=== PATIENT | female | born 1965 | race Two or more races ===

== ENCOUNTER 2016-06-13 14:05 | Inpatient (IN) | payer MEDICAID, OTHER ==
[~2016-06-13] VITALS: Ht 152.4 cm; Wt 80.9 kg
[2016-06-13] MEDS ORDERED: HYDROcodone-ACET 5/325MG TAB PO PRN (14:30)
[2016-06-13] MEDS ORDERED: ONDANSETRON HCL 4 MG/2 ML VIAL IV PRN (14:30)
[2016-06-13] MEDS ORDERED: ONDANSETRON HCL 4 MG/2 ML VIAL IV ONE (14:30)
[2016-06-13] MEDS ORDERED: SODIUM CHLORIDE 0.9% 1,000 ML IV SCH (14:30)
[2016-06-13] MEDS ORDERED: HYDROmorphone HCL 2 MG/ML VL IV PRN (14:30)
[2016-06-13] MEDS ORDERED: MORPHINE SULFATE 4 MG/ML SYRG IV ONE (14:30)
[2016-06-13] MEDS ORDERED: LORazepam 0.5 MG TAB PO PRN (14:45)
[2016-06-13] MEDS ORDERED: ACETAMINOPHEN 500 MG TAB PO PRN (14:45)
[2016-06-13] MEDS: SODIUM CHLORIDE 0.9% 1,000 ML IV SCH (15:01)
[2016-06-13 15:17] LABS: Basophils # (auto) 0 uL; Basophils % (auto) 0.3 % (0.0-2.0); Eosinophils # (auto) 0 uL; Eosinophils % (auto) 0.2 % (0.0-7.0); Hematocrit 41.3 % (36.0-46.0); Lymphocytes # (auto) 1.7 uL; Lymphocytes % (auto) 17.2 % (10.0-50.0); Mean Corpuscular Hemoglobin 29.5 pg (28.0-32.0); Mean Corpuscular Volume 86.8 fL (80.0-100.0); Mean Platelet Volume 8.1 fL (7.4-10.4); Monocytes # (auto) 0.6 uL; Monocytes % (auto) 6.6 % (0.0-12.0); Neutrophils # (auto) 7.4 uL; Neutrophils % (auto) 75.7 % (37.0-80.0); Platelet Count (auto) 353 10^3/uL (140-450); White Blood Cell 9.8 10^3/uL (4.4-10.8)
[2016-06-13 15:35] LABS: BUN/Creatinine Ratio 14.3; Bilirubin, Total 0.8 mg/dL (0.2-1.0); Calcium 9.1 mg/dL (8.5-10.1); Potassium 3.5 mmol/L (3.5-5.1); Total Protein 8.1 g/dL (6.4-8.2)
[2016-06-13 15:37] LABS: INR 1.02 (0.9-1.15); Partial Thromboplastin Time 29.2 sec (22.64-33.71); Prothrombin Time 10.5 sec (9.37-12.3)
[2016-06-13 16:29] LABS: Urine Bilirubin Negative (Negative); Urine Blood Negative /uL (Negative); Urine Color Yellow (Yellow); Urine Glucose Normal (Normal); Urine Mucus FEW (None Seen); Urine Nitrite Negative (Negative); Urine RBC 2 /hpf (0 - 4); Urine Squamous Epithelial Cell FEW /hpf (<5); Urine Urobilinogen Normal (Negative); Urine pH 6.5 (5.0-8.0)
[2016-06-13 16:37] LABS: Urine Ketone 1+ (Negative)
[2016-06-13 18:16] VITALS: BP 123/73
[2016-06-13] MEDS: HYDROcodone-ACET 5/325MG TAB PO PRN (18:31)
[2016-06-13 20:00] VITALS: BP 112/75
[2016-06-13] MEDS: DOCUSATE SOD 100 MG CAP PO SCH (21:48)
[2016-06-13 22:00] VITALS: BP 112/75
[2016-06-14] MEDS: PROMETHAZINE HCL 25 MG/ML 1ML IV PRN ×2 (00:23→06:32)
[2016-06-14] MEDS: MORPHINE SULF INJ 2 MG/ML SYRINGE 1ML IV PRN ×2 (00:23→06:32)
[2016-06-14] MEDS: SODIUM CHLORIDE 0.9% 1,000 ML IV SCH ×2 (04:02→16:50)
[2016-06-14 05:00] VITALS: BP 121/65
[2016-06-14 06:01] LABS: Basophils # (auto) 0 uL; Basophils % (auto) 0.1 % (0.0-2.0); Eosinophils # (auto) 0.1 uL; Hematocrit 38.2 % (36.0-46.0); Hemoglobin 12.8 g/dL (12.2-16.2); Lymphocytes % (auto) 19.6 % (10.0-50.0); Mean Corpuscular Hemoglobin 29.1 pg (28.0-32.0); Mean Corpuscular Hgb Conc. 33.6 g/dL (32.0-36.0); Mean Corpuscular Volume 86.7 fL (80.0-100.0); Mean Platelet Volume 8.1 fL (7.4-10.4); Monocytes # (auto) 0.8 uL; Neutrophils # (auto) 7.1 uL; Neutrophils % (auto) 71.3 % (37.0-80.0); Platelet Count (auto) 321 10^3/uL (140-450); White Blood Cell 9.9 10^3/uL (4.4-10.8)
[2016-06-14 06:40] LABS: Potassium 3.8 mmol/L (3.5-5.1)
[2016-06-14 06:45] LABS: BUN/Creatinine Ratio 14.1; Calcium 8.3 mg/dL (8.5-10.1)
[2016-06-14 08:00] VITALS: BP 121/69
[2016-06-14 09:00] VITALS: BP 117/64
[2016-06-14] MEDS ORDERED: ceFAZolin 1GM VL ONE (09:10)
[2016-06-14] MEDS ORDERED: BUPIVACAINE 0.75% INJ 10ML MPV SDV IJ ONE (09:11)
[2016-06-14] MEDS ORDERED: CLINDAMYCIN 600MG IV 50 ML IV ONE ×2 (09:48→10:10)
[2016-06-14] MEDS ORDERED: MIDAZOLAM HCL 1MG/1ML-2 ML VIAL IV ONE (09:55)
[2016-06-14] MEDS ORDERED: KETOROLAC TROMETH 30 MG/ML 1ML VIAL IV ONE ×2 (09:55→10:45)
[2016-06-14] MEDS ORDERED: DEXAMETHASONE SOD PHOS 10MG/1ML VIAL INJ IV ONE (09:55)
[2016-06-14] MEDS ORDERED: PROPOFOL 10 MG/ML 20 ML IV ONE (09:55)
[2016-06-14] MEDS ORDERED: MEPERIDINE HCL (50 MG/ML) 1 ML VIAL IV ONE (09:55)
[2016-06-14] MEDS ORDERED: fentaNYL CITRATE 100 MCG/2 ML VL IV ONE (09:55)
[2016-06-14] MEDS: DOCUSATE SOD 100 MG CAP PO SCH ×2 (10:00→22:00)
[2016-06-14] MEDS ORDERED: MIDAZOLAM HCL 1MG/1ML-2 ML VIAL IV PRN (10:45)
[2016-06-14] MEDS ORDERED: hydrALAZINE HCL 20 MG/ML VL IV PRN (10:45)
[2016-06-14] MEDS ORDERED: MORPHINE SULF INJ 2 MG/ML SYRINGE 1ML IV PRN (10:45)
[2016-06-14] MEDS ORDERED: LABETALOL HCL 5 MG/ML 4ML SYRINGE IV PRN (10:45)
[2016-06-14] MEDS ORDERED: ePHEDrine SULFATE 50 MG/ML AMP IV PRN (10:45)
[2016-06-14] MEDS ORDERED: HYDROmorphone HCL 2 MG/ML VL IV PRN (10:45)
[2016-06-14] MEDS ORDERED: ONDANSETRON HCL 4 MG/2 ML VIAL IV ONE (10:45)
[2016-06-14] MEDS ORDERED: NEOMYCIN-BACITRACIN-POLYM 15GM TOP OINT TOP ONE (11:00)
[2016-06-14 16:39] VITALS: BP 103/58
[2016-06-14 20:00] VITALS: BP 117/57
[2016-06-14 21:40] VITALS: BP 117/57
[2016-06-15] MEDS: HYDROcodone-ACET 5/325MG TAB PO PRN ×3 (04:53→23:36)
[2016-06-15 04:54] VITALS: BP 115/63
[2016-06-15] MEDS: SODIUM CHLORIDE 0.9% 1,000 ML IV SCH ×2 (06:26→20:02)
[2016-06-15 09:00] VITALS: BP 91/48
[2016-06-15] MEDS: DOCUSATE SOD 100 MG CAP PO SCH ×2 (09:10→21:08)
[2016-06-15 13:00] VITALS: BP 112/69
[2016-06-15] MEDS: MORPHINE SULF INJ 2 MG/ML SYRINGE 1ML IV PRN ×2 (13:11→21:08)
[2016-06-15 16:47] VITALS: BP 114/66
[2016-06-15 23:16] VITALS: BP 111/69
[2016-06-15] MEDS: TEMAZEPAM 15 MG CAP PO PRN (23:37)
[2016-06-16] MEDS: HYDROcodone-ACET 5/325MG TAB PO PRN ×3 (04:35→21:59)
[2016-06-16 05:47] VITALS: BP 101/60
[2016-06-16 09:01] VITALS: BP 111/60
[2016-06-16] MEDS: SODIUM CHLORIDE 0.9% 1,000 ML IV SCH ×2 (09:22→22:42)
[2016-06-16] MEDS: DOCUSATE SOD 100 MG CAP PO SCH ×2 (09:52→22:02)
[2016-06-16 14:31] VITALS: BP_SYST 107
[2016-06-16 17:59] VITALS: BP 111/80
[2016-06-16] MEDS: TEMAZEPAM 15 MG CAP PO PRN (21:59)
[2016-06-16 22:00] VITALS: BP 107/68
[2016-06-17 05:00] VITALS: BP 95/73
[2016-06-17] MEDS: HYDROcodone-ACET 5/325MG TAB PO PRN ×2 (05:59→14:22)
[2016-06-17] MEDS: DOCUSATE SOD 100 MG CAP PO SCH (09:37)
[2016-06-17 10:21] VITALS: BP 93/70
[2016-06-17 15:03] VITALS: BP 101/61
[2016-06-17 15:52] VITALS: BP 101/61
== END 2016-06-17 17:18 | disposition home or self-care (01) | DRG 313 ==
LOC: ER 14:05 → OVERFLOW 14:06 → EAST 16:56 → WEST WING 17:15
PROVIDERS: ADMIT Internal Medicine; ATTEND Internal Medicine
PROC: 0QSK04Z Reposition Left Fibula with Internal Fixation Device, Open Approach (ICD-10-PCS; principal; 2016-06-14 10:14)
DX: S82.842A Displaced bimalleolar fracture of left lower leg, initial encounter for closed fracture (principal); Z88.0 Allergy status to penicillin; W19.XXXA Unspecified fall, initial encounter; Y93.89 Activity, other specified; Y92.89 Other specified places as the place of occurrence of the external cause; Y99.8 Other external cause status
CPT/HCPCS: 36415; 71010; 73600; 76000; 80048; 80053; 81001; 81025; 85025; 85610; 85730; 86850; 86900; 86901; 93005; 96374; 96375; C1713; J0690; J1100; J1885; J2250; J2405; J2704; J3490

== ENCOUNTER 2020-03-23 10:30 | Emergency (ER) | payer MEDICAID ==
[~2020-03-23] VITALS: Ht 162.6 cm; Wt 65.8 kg
[2020-03-23 11:18] LABS: Basophils # (auto) 0 10 ^3/uL (0-0.2); Basophils % (auto) 0.2 % (0.0-2.0); Eosinophils # (auto) 0 10 ^3/uL (0-0.8); Hematocrit 46.5 % (36.0-46.0); Hemoglobin 15.5 g/dL (12.2-16.2); Lymphocytes # (auto) 1.1 10 ^3/uL (0.4-5.4); Lymphocytes % (auto) 12.4 % (10.0-50.0); Mean Corpuscular Hemoglobin 29.1 pg (28.0-32.0); Mean Corpuscular Hgb Conc. 33.4 g/dL (32.0-36.0); Mean Corpuscular Volume 87.1 fL (80.0-100.0); Monocytes # (auto) 0.4 10 ^3/uL (0-1.3); Monocytes % (auto) 5.2 % (0.0-12.0); Neutrophils % (auto) 82.2 % (37.0-80.0); Platelet Count (auto) 243 10^3/uL (140-450); Red Blood Cells 5.34 10^6/uL (4.0-5.20); Red Cell Distribution Width 13.8 % (11.8-14.3); White Blood Cell 8.6 10^3/uL (4.4-10.8)
[2020-03-23 11:44] LABS: Albumin 3.4 g/dL (3.4-5.0); Calcium 8.4 mg/dL (8.5-10.1); Potassium 3.5 mmol/L (3.5-5.1)
[2020-03-23 11:47] LABS: BUN/Creatinine Ratio 14.3; Bilirubin, Total 0.7 mg/dL (0.2-1.0); Total Protein 8.3 g/dL (6.4-8.2)
[2020-03-23] MEDS ORDERED: ONDANSETRON HCL 4 MG/2 ML VIAL IV ONE (13:00)
[2020-03-23] MEDS ORDERED: SODIUM CHLORIDE 0.9% 1,000 ML IV ONE (13:00)
[2020-03-23] MEDS ORDERED: ACETAMINOPHEN 325 MG TAB PO ONE ×2 (13:10→13:15)
[2020-03-23] MEDS ORDERED: AZITHROMYCIN 500MG/ 250ML 250 ML IV ONE (13:30)
[2020-03-23 15:38] VITALS: BP 97/57
[2020-03-23 15:57] LABS: INR 1.01 (0.9-1.15); Partial Thromboplastin Time 31.9 sec (23.0-31.2)
== END 2020-03-23 17:22 | disposition home or self-care (01) ==
LOC: ER 10:30 → EDBD 10:30 → ER 17:22
DX: U07.1 COVID-19 (principal); J18.8 Other pneumonia, unspecified organism; R11.2 Nausea with vomiting, unspecified; E87.1 Hypo-osmolality and hyponatremia; R94.5 Abnormal results of liver function studies
CPT/HCPCS: 36415; 71045; 80053; 83605; 83735; 85025; 85610; 85730; 87040; 87426; 93005; 96361; 96365; 96366; 96375; 99285; C9803; J0456; J2405; U0003

== ENCOUNTER 2022-05-28 01:09 | Emergency (ER) | payer MEDICAID ==
[~2022-05-28] VITALS: Ht 152.4 cm; Wt 72.0 kg
[2022-05-28] MEDS ORDERED: ONDANSETRON ODT 4 MG TAB PO ONE (01:30)
[2022-05-28] MEDS ORDERED: ACETAMINOPHEN 500 MG TAB PO ONE (01:30)
[2022-05-28 01:38] LABS: Basophils # (auto) 0.1 10 ^3/uL (0-0.2); Basophils % (auto) 0.8 % (0.0-2.0); Eosinophils # (auto) 0.3 10 ^3/uL (0-0.8); Eosinophils % (auto) 2.5 % (0.0-7.0); Hematocrit 41.4 % (36.0-46.0); Hemoglobin 14.4 g/dL (12.2-16.2); Lymphocytes % (auto) 27.3 % (10.0-50.0); Mean Corpuscular Hemoglobin 30.3 pg (28.0-32.0); Mean Corpuscular Hgb Conc. 34.7 g/dL (32.0-36.0); Mean Corpuscular Volume 87.4 fL (80.0-100.0); Monocytes # (auto) 0.6 10 ^3/uL (0-1.3); Monocytes % (auto) 5.4 % (0.0-12.0); Nucleated Red Blood Cells % 0.1 %; Red Blood Cells 4.74 10^6/uL (4.0-5.20); Red Cell Distribution Width 13.6 % (11.8-14.3)
[2022-05-28 01:45] LABS: Urine Bacteria FEW /hpf (None Seen); Urine Blood 1+ /uL (Negative); Urine Specific Gravity 1.017 (1.001-1.035); Urine WBC 18 /hpf (0 - 5)
[2022-05-28 01:59] LABS: Albumin 3.7 g/dL (3.4-5.0); BUN/Creatinine Ratio 14.7; Calcium 8.8 mg/dL (8.5-10.1); Potassium 3.6 mmol/L (3.5-5.1)
[2022-05-28 02:02] LABS: Bilirubin, Total 0.8 mg/dL (0.2-1.0); Total Protein 7.9 g/dL (6.4-8.2)
[2022-05-28 02:36] LABS: CRP High Sensitivity 0.379 mg/dL (< 0.3)
[2022-05-28] MEDS ORDERED: cefTRIAXone SOD 1,000 MG VL IM ONE (05:15)
[2022-05-28 07:50] VITALS: BP 127/68
== END 2022-05-28 08:04 | disposition home or self-care (01) ==
LOC: ER 01:09
DX: N20.0 Calculus of kidney (principal); Z88.0 Allergy status to penicillin
CPT/HCPCS: 36415; 74176; 80053; 81001; 83690; 85025; 86141; 96372; 99285; J0696; Q0162

== ENCOUNTER 2024-03-28 00:05 | Inpatient (IN) | payer MEDICAID, OTHER ==
[~2024-03-28] VITALS: Ht 152.4 cm; Wt 30.5 kg
[2024-03-28] VITALS (7 sets, daily range): BP systolic 128–150; BP diastolic 67–69; PULSE 60–72; RESP 14–17; TEMP 98–98.6; O2SAT 95–97
--- NOTE | 2024-03-28 00:20 | ED.PDOC ---
GI ASSESSMENT HPI Comments 59-year-old female who came to ER via EMS for abdominal pain. About 4 hours ago, after eating tacos, patient started experiencing epigastric abdominal pain associated with bouts of nausea and vomiting 4x. Patient is self-medicated with Pepto-Bismol at home but offered no relief. Denies any abdominal surgical history. Patient was given Zofran by paramedics while EN route to the ER. Chief Complaint: Abdominal pain Time Seen by MD: 00:19 Primary Care Provider: HELDERK Reviewed Notes: Nurses Notes Allergies: Coded Allergies: Penicillins (Verified Allergy, Severe, 06/13/16) Home Meds No Active Prescriptions or Reported Meds Information Source: Patient Mode of Arrival: EMS Timing: Hours Duration: Since onset Prehospital treatment: None Quality: Aching Vomitus: Watery Stool: Normal Severity: Moderate Recent: None Recent Hx of: None Pain Location: Epigastric Modifying Factors: Nothing Associated sign and symptoms: Nausea, Vomiting, Abdominal Pain Past Medical History PAST MEDICAL HISTORY: High Lipids, HTN, PUD Surgical History: Denies all surgeries CLINICAL INFORMATICS PHYSICIAN History: No Pertinent CLINICAL INFORMATICS PHYSICIAN History Family History Family History: Family hx of DM, Family hx of HTN Social History Smoker: Non-Smoker Alcohol: Denies ETOH Use Drugs: Denies Drug Use Lives In: Home Constitutional: reports: weakness; denies: chills, diaphoresis, fatigue, fever, malaise, sweats, others EENTM: denies: blurred vision, double vision, ear bleeding, ear discharge, ear drainage, ear pain, ear ringing, eye pain, eye redness, hearing loss, mouth pain, mouth swelling, nasal discharge, nose bleeding, nose congestion, nose pain, photophobia, tearing, throat pain, throat swelling, voice changes, others Respiratory: denies: cough, hemoptysis, orthopnea, SOB at rest, shortness of breath, SOB with excertion, stridor, wheezing, others Cardiovascular: denies: chest pain, dizzy spells, diaphoresis, Dyspnea on exer tion, edema, irregular heart beat, left arm pain, lightheadedness, palpitations, PND, syncope, others Gastrointestinal: reports: abdominal pain, nausea, vomiting; denies: abdomen distended, blood streaked bowels, constipated, diarrhea, dysphagia, difficulty swallowing, hematemesis, melena, poor appetite, poor fluid intake, rectal bleeding, rectal pain, others Genitourinary: denies: abnormal vagina bleeding, burning, dyspareunia, dysuria, flank pain, frequency, hematuria, incontinence, pain, , vagina discharge, urgency, others Neurological: denies: dizziness, fainting, headache, left sided numbness, left sided weakness, numbness, paresthesia, pre-existing deficit, right sided numbness, right sided weakness, seizure, speech problems, tingling, tremors, weakness, others Musculoskeletal: denies: back pain, gout, joint pain, joint swelling, muscle pain, muscle stiffness, neck pain, others Integumetry: denies: bruises, change in color, change in hair/nails, dryness, laceration, lesions, lumps, rash, wounds, others Allergic/Immunocompromised: denies: Difficulty Healing, Frequent Infections, Hives, Itching, others Hematologic/Lymphatic: denies: anemia, blood clots, easy bleeding, easy bruising, swollen glands, others Endocrine: denies: excessive hunger, excessive sweating, excessive thirst, excessive urination, flushing, intolerance to cold, intolerance to heat, unexplained weight gain, unexplained weight loss, others Psychiatric: denies: anxiety, bipolar disorder, depression, hopeless, panic disorder, schizophrenia, sleepless, suicidal, others Physical Exam General Appearance: No Apparent Distress, Normal HEENT: Normal ENT Inspection, Pharynx Normal, TMs Normal Neck: Full Range of Motion, Non-Tender, Normal, Normal Inspection Respiratory: Chest Non-Tender, Lungs Clear, No Accessory Muscle Use, No Respiratory Distress, Normal Breath Sounds Cardiovascular: No Edema, No JVD, No Murmur, No Gallop, Normal Peripheral Pulses, Regular Rate/Rhythm Breast Exam: Deferred Gastrointestinal: No Organomegaly, Non Tender, No Pulsatile Mass, Normal Bowel Sounds, Soft Genitalia: Deferred Pelvic: Deferred Rectal: Deferred Extremities: No calf tenderness, Normal capillary refill, Normal inspection, Normal range of motion, Non-tender, No pedal edema Musculoskeletal : Apperance: Normal 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 Was a procedure done?: No GI differential Dx Differential Diagnosis: Diverticular disease, Gastritis/PUD, Gastroenteritis, Pancreatitis, UTI, Urolithiasis, Dehydration, Electrolyte Imbalance, Food Poisoning X-Ray, Labs, Meds, VS Vital Signs Date Time Temp Pulse Resp B/P (MAP) Pulse Ox O2 Delivery O2 Flow Rate FiO2 03/28/24 00:15 67 03/28/24 00:05 97.9 71 20 148/91 (110) 96 Lab Test 03/28/24 00:30 Range/Units White Blood Count 12.2 H 4.4-10.8 10^3/uL Red Blood Count 4.83 4.0-5.20 10^6/uL Hemoglobin 14.3 12.2-16.2 g/dL Hematocrit 42.4 36.0-46.0 % Mean Corpuscular Volume 87.7 80.0-100.0 fL Mean Corpuscular Hemoglobin 29.7 28.0-32.0 pg Mean Corpuscular Hemoglobin Concent 33.8 32.0-36.0 g/dL Red Cell Distribution Width 13.7 11.8-14.3 % Platelet Count 345 140-450 10^3/uL Mean Platelet Volume 7.7 6.9-10.8 fL Neutrophils (%) (Auto) 76.0 37.0-80.0 % Lymphocytes (%) (Auto) 17.2 10.0-50.0 % Monocytes (%) (Auto) 4.5 0.0-12.0 % Eosinophils (%) (Auto) 1.7 0.0-7.0 % Basophils (%) (Auto) 0.6 0.0-2.0 % Neutrophils # (Auto) 9.3 H 1.6-8.6 10 ^3/uL Lymphocytes # (Auto) 2.1 0.4-5.4 10 ^3/uL Monocytes # (Auto) 0.5 0-1.3 10 ^3/uL Eosinophils # (Auto) 0.2 0-0.8 10 ^3/uL Basophils # (Auto) 0.1 0-0.2 10 ^3/uL Nucleated Red Blood Cells 0.0 % Sodium Level 141 136-145 mmol/L Potassium Level 3.5 3.5-5.1 mmol/L Chloride Level 104 98-107 mmol/L Carbon Dioxide Level 24 20-31 mmol/L Anion Gap 13 5-15 Blood Urea Nitrogen 10 9-23 mg/dL Creatinine 0.88 0.550-1.02 mg/dL Glomerular Filtration Rate Calc 76 >90 mL/min BUN/Creatinine Ratio 11.4 10.0-20.0 Serum Glucose 160 H 74-106 mg/dL Calcium Level 9.5 8.7-10.4 mg/dL Total Bilirubin 1.2 H 0.2-1.0 mg/dL Aspartate Amino Transferase (AST) 42 H 13-40 U/L Alanine Aminotransferase (ALT) 55 H 7-40 U/L Alkaline Phosphatase 76 46-116 U/L Troponin I High Sensitivity < 3 L </=34 ng/L Total Protein 7.6 5.7-8.2 g/dL Albumin 4.4 3.2-4.8 g/dL Lipase 73 H 12-53 U/L Exam: CT CT AB PEL WITH IV CON ONLY History: upper abd pain COMPARISON: None Technique: Multidetector spiral CT of the abdomen and pelvis was performed from lung bases to pubic symphysis. Intravenous contrast was administered during this examination. Portal venous imaging was obtained. Axial, coronal and sagittal multiplanar reformats were performed by the technologist on a separate workstation. Radiation Dose : 1. Abdomen/Pelvis: CTDIvol 15.6 mGy, DLP 880 mGy*cm. CONTRAST: Type of contrast: Omni 300 Contrast injected: 100 ml Findings: Lung Bases: No acute or significant lung base finding. Normal heart size. No pleural or pericardial effusion. Liver: The liver is normal in size. No focal lesions. Normal hepatic vascular enhancement. Gallbladder and Biliary Tree: Questionable gallbladder wall thickening. Probable gallstones Spleen: Unremarkable Pancreas: The pancreas is normal in appearance without focal lesions or abnormal enhancement. Adrenal Glands: Unremarkable Kidneys: No hydronephrosis. Bladder: Unremarkable Bowel: The stomach is grossly normal in appearance. Mild wall thickening of the descending colon may reflect underdistention versus mild colitis The appendix is not visualized; however, no secondary findings of acute appendicitis identified. Ascites: Absent Lymphadenopathy: No mesenteric, retroperitoneal or periportal lymphadenopathy. Abdominal Wall and Mesentery: Unremarkable. Vasculature: The visualized abdominal aorta is normal in size and caliber. Abdominal and pelvic vessels demonstrate normal enhancement. Pelvic Organs: Unremarkable Musculoskeletal: No aggressive focal bony lesions, acute fractures or dislocation. IMPRESSION: 1. Questionable gallbladder wall thickening with probable gallstones. Cholecystitis is not excluded. Recommend right upper quadrant ultrasound for further evaluation. 2. Mild wall thickening of the descending colon may reflect underdistention versus mild colitis Time of 1ST Reevaluation: 00:16 Reevaluation 1ST: Unchanged Time of 2ND Reevaluation: 01:25 Reevaluation 2ND: Unchanged Patient Education/Counseling: Diagnosis, Treatment Family Education/Counseling: No Family Present Departure 1 Departure Time of Disposition: 01:26 (CT suggests cholecystitis. will give antibiotics and with shared decision making will admit for ultrasound and surgery consult) Impression: Primary Impression: Acute cholecystitis Disposition: ADMITTED INPATIENT Admit to: Med Surg Condition: Guarded e-Prescriptions No Active Prescriptions or Reported Meds Critical Care Note Critical Care Time?: No Stability Stability form required: No Heart Score Heart Score: Heart Score Response (Comments) Value History N/A 0 EKG N/A 0 Age N/A 0 Risk Factors N/A 0 Troponin N/A 0 Total 0 I personally scribed for DEVI NOEL MD ([email or web address]) on 03/28/24 at 00:20. Electronically submitted by Rob Henriquez ([email or web address]). I personally scribed for DEVI NOEL MD ([email or web address]) on 03/28/24 at 01:11. Electronically submitted by Rob Henriquez ([email or web address]). DEVI NOEL MD Mar 28, 2024 00:20
[2024-03-28 00:43] LABS: Basophils # (auto) 0.1 10 ^3/uL (0-0.2); Basophils % (auto) 0.6 % (0.0-2.0); Eosinophils # (auto) 0.2 10 ^3/uL (0-0.8); Eosinophils % (auto) 1.7 % (0.0-7.0); Hematocrit 42.4 % (36.0-46.0); Hemoglobin 14.3 g/dL (12.2-16.2); Lymphocytes # (auto) 2.1 10 ^3/uL (0.4-5.4); Lymphocytes % (auto) 17.2 % (10.0-50.0); Mean Corpuscular Hemoglobin 29.7 pg (28.0-32.0); Mean Corpuscular Hgb Conc. 33.8 g/dL (32.0-36.0); Mean Corpuscular Volume 87.7 fL (80.0-100.0); Monocytes # (auto) 0.5 10 ^3/uL (0-1.3); Monocytes % (auto) 4.5 % (0.0-12.0); Neutrophils # (auto) 9.3 10 ^3/uL (1.6-8.6); Platelet Count (auto) 345 10^3/uL (140-450); Red Blood Cells 4.83 10^6/uL (4.0-5.20); Red Cell Distribution Width 13.7 % (11.8-14.3); White Blood Cell 12.2 10^3/uL (4.4-10.8)
[2024-03-28] MEDS: IOHEXOL 300 MG/ML 100ML BOTTLE IJ ONE (00:43)
--- NOTE | 2024-03-28 00:56 | DVH ---
Exam: CT CT AB PEL WITH IV CON ONLY History: upper abd pain COMPARISON: None Technique: Multidetector spiral CT of the abdomen and pelvis was performed from lung bases to pubic s ymphysis. Intravenous contrast was administered during this examination. Portal venous imaging was obtained. Axial, coronal and sagittal multiplanar reformats were performed by the technologist on a separate workstation. Radiation Dose : 1. Abdomen/Pelvis: CTDIvol 15.6 mGy, DLP 880 mGy*cm. CONTRAST: Type of contrast: Omni 300 Contrast injected: 100 ml Findings: Lung Bases: No acute or significant lung base finding. Normal heart size. No pleural or pericardial effusion. Liver: The liver is normal in size. No focal lesions. Normal hepatic vascular enhancement. Gallbladder and Biliary Tree: Questionable gallbladder wall thickening. Probable gallstones Spleen: Unremarkable Pancreas: The pancreas is normal in appearance without focal lesions or abnormal enhancement. Adrenal Glands: Unremarkable Kidneys: No hydronephrosis. Bladder: Unremarkable Bowel: The stomach is grossly normal in appearance. Mild wall thickening of the descending colon may reflect underdistention versus mild colitis The appendix is not visualized; however, no secondary fi ndings of acute appendicitis identified. Ascites: Absent Lymphadenopathy: No mesenteric, retroperitoneal or periportal lymphadenopathy. Abdominal Wall and Mesentery: Unremarkable. Vasculature: The visualized abdominal aorta is normal in size and caliber. Abdominal and pelvic vess els demonstrate normal enhancement. Pelvic Organs: Unremarkable Musculoskeletal: No aggressive focal bony lesions, acute fractures or dislocation. IMPRESSION: 1. Questionable gallbladder wall thickening with probable gallstones. Cholecystitis is not excluded. Recommend right upper quadrant ultrasound for further evaluation. 2. Mild wall thickening of the descending colon may reflect underdistention versus mild colitis Radiation optimization: All CT scans at this facility use at least one of these dose optimization cony hniques: automated exposure control mA and/or kV adjustment per patient size (includes targeted exam s where dose is matched to clinical indication) or iterative reconstruction.
[2024-03-28 01:03] LABS: Albumin 4.4 g/dL (3.2-4.8); Alkaline Phosphatase 76 U/L (46-116); Anion Gap 13 (5-15); BUN/Creatinine Ratio 11.4 (10.0-20.0); Blood Urea Nitrogen 10 mg/dL (9-23); Calcium 9.5 mg/dL (8.7-10.4); Carbon Dioxide 24 mmol/L (20-31); Chloride 104 mmol/L (98-107); Sodium 141 mmol/L (136-145)
[2024-03-28 01:04] LABS: Bilirubin, Total 1.2 mg/dL (0.2-1.0); Total Protein 7.6 g/dL (5.7-8.2)
[2024-03-28 01:11] LABS: Alanine Aminotransferase 55 U/L (7-40); Aspartate Aminotransferase 42 U/L (13-40); Glucose 160 mg/dL (74-106); Lipase 73 U/L (12-53); Potassium 3.5 mmol/L (3.5-5.1)
[2024-03-28] MEDS: SODIUM CHLORIDE 0.9% 1,000 ML IVB ONE (01:48)
[2024-03-28] MEDS: PIPERACILLIN-TAZOB 3.375GM 100 ML IV ONE (01:54)
[2024-03-28] MEDS ORDERED: MORPHINE SULFATE INJ 2 MG/ml SYRG IV PRN ×3 (02:30→05:30)
[2024-03-28] MEDS ORDERED: NITROGLYCERIN 0.4 MG SL TAB SL PRN (02:30)
[2024-03-28] MEDS: ONDANSETRON HCL 4 MG/2 ML VIAL IV ONE (02:42)
[2024-03-28] MEDS: MORPHINE SULFATE 4 MG/ML SYR/VIAL IV ONE (02:43)
[2024-03-28 03:11] LABS: INR 0.95 (0.9-1.15); Prothrombin Time 10.1 sec (9.3-11.8)
[2024-03-28 03:34] LABS: Basophils # (auto) 0 10 ^3/uL (0-0.2); Basophils % (auto) 0.2 % (0.0-2.0); Eosinophils # (auto) 0 10 ^3/uL (0-0.8); Eosinophils % (auto) 0.3 % (0.0-7.0); Hematocrit 41.3 % (36.0-46.0); Hemoglobin 13.7 g/dL (12.2-16.2); Lymphocytes # (auto) 1.2 10 ^3/uL (0.4-5.4); Lymphocytes % (auto) 11.8 % (10.0-50.0); Mean Corpuscular Hemoglobin 29.7 pg (28.0-32.0); Mean Corpuscular Hgb Conc. 33.3 g/dL (32.0-36.0); Mean Corpuscular Volume 89.3 fL (80.0-100.0); Monocytes # (auto) 0.6 10 ^3/uL (0-1.3); Monocytes % (auto) 5.7 % (0.0-12.0); Neutrophils # (auto) 8.3 10 ^3/uL (1.6-8.6); Platelet Count (auto) 305 10^3/uL (140-450); Red Blood Cells 4.63 10^6/uL (4.0-5.20); Red Cell Distribution Width 13.8 % (11.8-14.3); White Blood Cell 10.1 10^3/uL (4.4-10.8)
[2024-03-28 03:48] LABS: Alkaline Phosphatase 78 U/L (46-116); Anion Gap 12 (5-15); BUN/Creatinine Ratio 9.9 (10.0-20.0); Calcium 9.2 mg/dL (8.7-10.4); Carbon Dioxide 23 mmol/L (20-31); Chloride 106 mmol/L (98-107); Potassium 3.6 mmol/L (3.5-5.1); Sodium 141 mmol/L (136-145)
[2024-03-28 03:49] LABS: Albumin 4.2 g/dL (3.2-4.8); Total Protein 7.2 g/dL (5.7-8.2)
[2024-03-28 04:02] LABS: Alanine Aminotransferase 67 U/L (7-40); Aspartate Aminotransferase 63 U/L (13-40); Bilirubin, Total 1.4 mg/dL (0.2-1.0); Blood Urea Nitrogen 8 mg/dL (9-23); Glucose 148 mg/dL (74-106); Lipase 61 U/L (12-53)
--- NOTE | 2024-03-28 04:07 | DVH ---
Examination: CXR1 Clinical Indication: SOB Comparison: None. Technique: Frontal view of chest radiograph. Findings: The lungs are clear and well-expanded with no pulmonary infiltrate or pleural effusion. The cardiomediastinal silhouette is within normal limits. No acute osseous abnormality. ECG lead wires are noted. Impression: 1. ECG lead wires are noted. 2. No acute cardiopulmonary disease. Electronically Signed 03/28/2024 04:05 Darlyn Caballero
[2024-03-28] MEDS: SODIUM CHLORIDE 0.9% 1,000 ML IV ONE (04:25)
--- NOTE | 2024-03-28 05:31 | DVHHPRES ---
History of Present Illness Resident Creating Document: JENNIFERCASHZOYA RESIDENT History of Present Illness Patient is a 59-year-old female with a past medical history of dyslipidemia came to the ED with a chief complaint of upper abdominal pain for 2-3 hours prior to admission. Patient reported sudden onset epigastric and right upper quadrant pain severe 10/10 on intensity which caused her to fall to floor, radiating to the back over the flank following which the patient had 6-7 episodes of vomiting. Vomitus was mostly undigested food and no blood. Patient reported that she had a similar pain a year ago and she went to [place] where she was told that she had gallstones but no surgery was done. During the current episode patient denied chest pain, shortness of breath, palpitations, sweating. Patient denies recent weight loss, night sweats, sick contacts, recent travel, eating food out of the normal. Past medical history: Dyslipidemia Past surgical history: Left ankle surgery Social history: Patient was with family and denies smoking, alcohol, drug use Home medications: Atorvastatin 40 mg q.d. Review of Systems Review of Systems Patient is seen and examined at the bedside Reports right upper quadrant, epigastric and left upper quadrant pain. Also reports left lower quadrant pain Denies nausea, vomiting, diarrhea Allergies: Coded Allergies: Penicillins (Verified Allergy, Severe, 06/13/16) Medications Current Medications Medications Dose Ordered Sig/Alphonso Route Start Time Stop Time Status Last Admin Dose Admin Nitroglycerin 0.4 mg Q5MINP PRN SL 03/28/24 02:30 Morphine Sulfate 2 mg Q30M PRN IV 03/28/24 02:30 Piperacillin Sod/ Tazobactam Sod 100 ml @ 25 mls/hr Q8HR IV 03/28/24 09:00 Exam Vital Signs Vital Signs Date Time Temp Pulse Resp B/P (MAP) Pulse Ox O2 Delivery O2 Flow Rate FiO2 03/28/24 04:28 62 17 131/80 03/28/24 01:51 99.1 96 99.1 Exam Physical Examination Gen - no pallor, no icterus, no cyanosis, no clubbing, no LAD, no edema . Skin - Patients skin is warm and dry.. HEENT - normocephalic, atraumatic, dry mucous membranes. Neck - full ROM, no LAD, no JVD Pulmonary - B/L vesicular breath sounds. no crackles , no wheezing cardiovascular - normal S1,S2 heard. no murmurs heard. peripheral pulses radial 2+, pedal 2+. capillary refill normal <2 secs. GI - soft abdomen with tenderness to palpation in the right right upper quadrant, the epigastrium and left lower quadrant. no hepatospleenomegaly. Bowel sounds hypoactive Neurological - Patient is A/O X 3. Bilateral upper extremity strength 5/5, bilateral lower extremity strength 5/5, no facial droop, normal speech, no tremor, no sensory deficiets. Labs/Xrays Labs Test 03/28/24 03:15 03/28/24 00:30 Range/Units White Blood Count 10.1 4.4-10.8 10^3/uL Red Blood Count 4.63 4.0-5.20 10^6/uL Hemoglobin 13.7 12.2-16.2 g/dL Hematocrit 41.3 36.0-46.0 % Mean Corpuscular Volume 89.3 80.0-100.0 fL Mean Corpuscular Hemoglobin 29.7 28.0-32.0 pg Mean Corpuscular Hemoglobin Concent 33.3 32.0-36.0 g/dL Red Cell Distribution Width 13.8 11.8-14.3 % Platelet Count 305 140-450 10^3/uL Mean Platelet Volume 7.7 6.9-10.8 fL Neutrophils (%) (Auto) 82.0 H 37.0-80.0 % Lymphocytes (%) (Auto) 11.8 10.0-50.0 % Monocytes (%) (Auto) 5.7 0.0-12.0 % Eosinophils (%) (Auto) 0.3 0.0-7.0 % Basophils (%) (Auto) 0.2 0.0-2.0 % Neutrophils # (Auto) 8.3 1.6-8.6 10 ^3/uL Lymphocytes # (Auto) 1.2 0.4-5.4 10 ^3/uL Monocytes # (Auto) 0.6 0-1.3 10 ^3/uL Eosinophils # (Auto) 0 0-0.8 10 ^3/uL Basophils # (Auto) 0 0-0.2 10 ^3/uL Nucleated Red Blood Cells 0.0 % Sodium Level 141 136-145 mmol/L Potassium Level 3.6 3.5-5.1 mmol/L Chloride Level 106 98-107 mmol/L Carbon Dioxide Level 23 20-31 mmol/L Anion Gap 12 5-15 Blood Urea Nitrogen 8 L 9-23 mg/dL Creatinine 0.81 0.550-1.02 mg/dL Glomerular Filtration Rate Calc 84 >90 mL/min BUN/Creatinine Ratio 9.9 L 10.0-20.0 Serum Glucose 148 H 74-106 mg/dL Calcium Level 9.2 8.7-10.4 mg/dL Total Bilirubin 1.4 H 0.2-1.0 mg/dL Gamma Glutamyl Transpeptidase 98 H <38 U/L Aspartate Amino Transferase (AST) 63 H 13-40 U/L Alanine Aminotransferase (ALT) 67 H 7-40 U/L Alkaline Phosphatase 78 46-116 U/L Total Protein 7.2 5.7-8.2 g/dL Albumin 4.2 3.2-4.8 g/dL Lipase 61 H 12-53 U/L Prothrombin Time 10.1 9.3-11.8 sec Prothrombin Time INR 0.95 0.9-1.15 Activated Partial Thromboplast Time 31.0 24.5-34.5 SEC Troponin I High Sensitivity < 3 L </=34 ng/L Assessment/Plan Assessment/Plan Assessment and plan # Right upper quadrant/epigastric abdominal pain # ?Acute cholecystitis # Cholelithiasis # ?Acute pancreatitis - CT abdomen pelvis with IV contrast shows questionable gallbladder wall thickening with probable gallstones. Pancreas normal in appearance without focal lesions or abnormal enhancement - lipase elevated but less than 3 times upper limit - gallbladder ultrasound pending - patient NPO - on IV fluids - Zosyn 3.375 g IV Q 8 hours - Protonix 40 mg IV daily - Zofran 4 mg p.r.n. - surgical consult pending # ?Acute colitis - CT abdomen pelvis shows mild wall thickening of the descending colon - on IV Zosyn - NPO - IV fluids # h/o dyslipidemia - atorvastatin 40 mg once daily, held Goals of care discussed with the patient for over 31 minutes. Full code Plan discussed with Dr. Crowder Plan discussed with: Patient My Orders Orders - YOLI RODRIGUEZ RESIDENT Procedure Category Date Status Time Gallbladder US 03/28/24 Logged 02:20 Admit ADMIT 03/28/24 Transmitted 02:20 Nitroglycerin PHA 03/28/24 In Process Sublingual (Ntrostat 02:30 Morphine Sulfate PHA 03/28/24 In Process Injection 02:30 Npo (Nothing By DIET 03/28/24 Transmitted Mouth) Diet Breakfast Drug Screen LAB 03/28/24 Logged 02:20 Chest Xray 1 View XY 03/28/24 Resulted 02:20 Blood Culture JONES 03/28/24 In Process 02:20 Covid19 Antigen Rachelle LAB 03/28/24 Logged Rapid Influenza A&B LAB 03/28/24 Logged 02:20 Sodium Chloride 0.9% PHA 03/28/24 In Process 02:30 Piperacillin-Tazob PHA 03/28/24 In Process 3.375gm (Zosyn 3.375g 09:00 * Surgical Consult CONS 03/28/24 Transmitted Date of Service: Mar 28, 2024 Billing Provider: HUONG CROWDER MD Common Visit Codes: 54584-[id number] INP/OBS CARE (HIGH) Secondary Visit Codes: 68971-[id number] CARE PLAN 30 MINUTES YOLI RODRIGUEZ RESIDENT Mar 28, 2024 05:31 HUONG CROWDER MD Mar 28, 2024 10:43
--- NOTE | 2024-03-28 06:19 | ECG ---
[facility] Test Date: 2024-03-28 Test Time: 00:15:15 Pat Name: LOVE WALTERS Department: ER Room: [address] [place] [address] Gender: F [employer] Specialist: SHANTE : 1965 Requested By: DEVI NOEL Order Number: [id number] Reading MD: Davon Mendez Measurements Intervals [place] Rate: 67 P: 79 IA: 174 QRS: 77 QRSD: 86 T: 64 QT: 436 QTc: 461 Interpretive Statements Sinus rhythm Borderline low voltage, extremity leads Electronically Signed On 03-31-2024 13:04:14 PST by Davon Mendez Please click the below link to view image of tracing.
[2024-03-28 07:09] LABS: Urine Bacteria None Seen /hpf (None Seen)
[2024-03-28 07:21] LABS: Rapid Influenza A Negative (Negative); Rapid Influenza B Negative (Negative)
[2024-03-28 07:22] LABS: COVID19 ANTIGEN SOFIA FIA NEGATIVE (NEGATIVE)
[2024-03-28 07:28] LABS: Opiate Scree,Urine Pos (NEGATIVE)
[2024-03-28 07:29] LABS: Urine Blood 1+ /uL (Negative); Urine Clarity Clear (Clear); Urine Color Light-Yellow (Yellow); Urine Protein, UAD Negative (Negative); Urine Urobilinogen Normal (Negative); Urine WBC 1 /hpf (0 - 5); Urine pH 6.5 (5.0-9.0)
[2024-03-28 07:30] LABS: Amphetamine Screen, Urine Neg (NEGATIVE); Barbiturate Scree,Urine Neg (NEGATIVE); Benzodiazephine Screen, Urine Neg (NEGATIVE); Cannabinoid Screen, Urine Neg (NEGATIVE); Cocaine Screen, Urine Neg (NEGATIVE); Phencyclidine Screen, Urine Neg (NEGATIVE)
--- NOTE | 2024-03-28 09:41 | DVHINCON2 ---
Date of service: Mar 28, 2024 Family History: Patient reports no known family medical history. Allergies: Coded Allergies: Penicillins (Verified Allergy, Severe, 06/13/16) Home Meds No Active Prescriptions or Reported Meds Current Medications Current Medications Medications (Trade) Dose Ordered Sig/Alphonso Route PRN Reason Start Time Stop Time Status Last Admin Nitroglycerin (Ntrostat Sublingual) 0.4 mg Q5MINP PRN SL FOR CHEST PAIN 03/28/24 02:30 Morphine Sulfate 2 mg Q30M PRN IV FOR CHEST PAIN 03/28/24 02:30 Piperacillin Sod/ Tazobactam Sod 100 ml @ 25 mls/hr Q8HR IV 03/28/24 09:00 Ondansetron HCl (Zofran) 4 mg Q4HPRN PRN IV NAUSEA / VOMITING 03/28/24 05:30 Morphine Sulfate 2 mg Q4HPRN PRN IV SEVERE PAIN (7-10 PAIN SCALE) 03/28/24 05:30 Morphine Sulfate 1 mg Q2HP PRN IV MODERATE PAIN (4-6 PAIN SCALE) 03/28/24 05:30 Pantoprazole Sodium (Protonix) 40 mg DAILY IV 03/28/24 10:00 Vital Signs Vital Signs Date Time Temp Pulse Resp B/P (MAP) Pulse Ox O2 Delivery O2 Flow Rate FiO2 03/28/24 08:00 72 17 97 Room Air* 0 21 03/28/24 08:00 98.6 123/72 (89) 98.6 Labs/Diagnostic Data Labs Test 03/28/24 06:00 03/28/24 03:15 03/28/24 00:30 Range/Units Urine Color Light-yellow Yellow Urine Clarity Clear Clear Urine pH 6.5 5.0-9.0 Urine Specific M[place] 1.040 H 1.001-1.035 Urine Protein Negative Negative Urine Ketones Negative Negative Urine Blood 1+ H Negative /uL Urine Nitrite Negative Negative Urine Bilirubin Negative Negative Urine Urobilinogen Normal Negative mg/dL Urine Leukocyte Esterase Negative Negative /uL Urine RBC 5 0 - 4 /hpf Urine WBC 1 0 - 5 /hpf Urine Squamous Epithelial Cells Few <5 /hpf Urine Bacteria None seen None Seen /hpf Urine Glucose Normal Normal mg/dL Urine Opiates Screen Pos NEGATIVE Urine Fentanyl Screen Pos NEGATIVE Urine Barbiturates Screen Neg NEGATIVE Urine Phencyclidine Screen Neg NEGATIVE Urine Amphetamines Screen Neg NEGATIVE Urine Benzodiazepines Screen Neg NEGATIVE Urine Cocaine Screen Neg NEGATIVE Urine Cannabinoids Screen Neg NEGATIVE Influenza Type A Antigen Negative Negative Influenza Type B Antigen Negative Negative SARS-CoV-2 Antigen (Rapid) Negative NEGATIVE White Blood Count 10.1 4.4-10.8 10^3/uL Red Blood Count 4.63 4.0-5.20 10^6/uL Hemoglobin 13.7 12.2-16.2 g/dL Hematocrit 41.3 36.0-46.0 % Mean Corpuscular Volume 89.3 80.0-100.0 fL Mean Corpuscular Hemoglobin 29.7 28.0-32.0 pg Mean Corpuscular Hemoglobin Concent 33.3 32.0-36.0 g/dL Red Cell Distribution Width 13.8 11.8-14.3 % Platelet Count 305 140-450 10^3/uL Mean Platelet Volume 7.7 6.9-10.8 fL Neutrophils (%) (Auto) 82.0 H 37.0-80.0 % Lymphocytes (%) (Auto) 11.8 10.0-50.0 % Monocytes (%) (Auto) 5.7 0.0-12.0 % Eosinophils (%) (Auto) 0.3 0.0-7.0 % Basophils (%) (Auto) 0.2 0.0-2.0 % Neutrophils # (Auto) 8.3 1.6-8.6 10 ^3/uL Lymphocytes # (Auto) 1.2 0.4-5.4 10 ^3/uL Monocytes # (Auto) 0.6 0-1.3 10 ^3/uL Eosinophils # (Auto) 0 0-0.8 10 ^3/uL Basophils # (Auto) 0 0-0.2 10 ^3/uL Nucleated Red Blood Cells 0.0 % Sodium Level 141 136-145 mmol/L Potassium Level 3.6 3.5-5.1 mmol/L Chloride Level 106 98-107 mmol/L Carbon Dioxide Level 23 20-31 mmol/L Anion Gap 12 5-15 Blood Urea Nitrogen 8 L 9-23 mg/dL Creatinine 0.81 0.550-1.02 mg/dL Glomerular Filtration Rate Calc 84 >90 mL/min BUN/Creatinine Ratio 9.9 L 10.0-20.0 Serum Glucose 148 H 74-106 mg/dL Calcium Level 9.2 8.7-10.4 mg/dL Total Bilirubin 1.4 H 0.2-1.0 mg/dL Gamma Glutamyl Transpeptidase 98 H <38 U/L Aspartate Amino Transferase (AST) 63 H 13-40 U/L Alanine Aminotransferase (ALT) 67 H 7-40 U/L Alkaline Phosphatase 78 46-116 U/L Total Protein 7.2 5.7-8.2 g/dL Albumin 4.2 3.2-4.8 g/dL Lipase 61 H 12-53 U/L Prothrombin Time 10.1 9.3-11.8 sec Prothrombin Time INR 0.95 0.9-1.15 Activated Partial Thromboplast Time 31.0 24.5-34.5 SEC Troponin I High Sensitivity < 3 L </=34 ng/L Assessment 59 year old female with right upper quadrant abdominal pain, nausea and vomiting, has ct indication of gallstones, ultrasound pending, slight elevation of LFT's. abdomen non tender, no guarding, no distension, laparoscopic possibly open cholecystectomy, risks and complications explained in detail Plan discussed with: Patient NASH HERNANDEZ MD Mar 28, 2024 09:41
[2024-03-28] MEDS: PIPERACILLIN-TAZOB 3.375GM 100 ML IV SCH (09:48)
[2024-03-28] MEDS: PANTOPRAZOLE 40 MG/10 ML VIAL INJ IV SCH (09:54)
--- NOTE | 2024-03-28 11:55 | DVH ---
INDICATION: Cholecystitis TECHNIQUE: Multiple real-time sonographic images were obtained of the right upper quadrant. COMPARISON: None FINDINGS: The liver demonstrates heterogeneous echotexture without focal mass lesions. The liver hans ures 13cm. There is no intrahepatic or extrahepatic ductal dilatation. The common duct measures 0 .5 mm. Gallstones are noted. The gallbladder wall measures 0.5 mm and is thickned.. The right kidney measures 11 cm. The right kidney is normal in contour, size, and shape. The echog enicity is normal. There is no hydronephrosis. The pancreas is not well visualized due to overlying bowel gas. IMPRESSION: Gallstones with gallbladder wall thickening.
[2024-03-28] MEDS ORDERED: ATOR40TA52 PO (15:33)
[2024-03-28] MEDS: ONDANSETRON HCL 4 MG/2 ML VIAL IV PRN (16:46)
[2024-03-29 05:00] VITALS: BP 104/59; PULSE 67; RESP 18; TEMP 98.6; O2SAT 95
[2024-03-29 07:04] LABS: Basophils # (auto) 0 10 ^3/uL (0-0.2); Basophils % (auto) 0.2 % (0.0-2.0); Eosinophils # (auto) 0.2 10 ^3/uL (0-0.8); Eosinophils % (auto) 3.6 % (0.0-7.0); Hematocrit 41.1 % (36.0-46.0); Hemoglobin 13.8 g/dL (12.2-16.2); Lymphocytes # (auto) 1.7 10 ^3/uL (0.4-5.4); Lymphocytes % (auto) 29.7 % (10.0-50.0); Mean Corpuscular Hemoglobin 29.7 pg (28.0-32.0); Mean Corpuscular Hgb Conc. 33.5 g/dL (32.0-36.0); Mean Corpuscular Volume 88.6 fL (80.0-100.0); Monocytes # (auto) 0.5 10 ^3/uL (0-1.3); Monocytes % (auto) 7.9 % (0.0-12.0); Neutrophils # (auto) 3.4 10 ^3/uL (1.6-8.6); Neutrophils % (auto) 58.6 % (37.0-80.0); Nucleated Red Blood Cells % 0.1 %; Platelet Count (auto) 327 10^3/uL (140-450); Red Blood Cells 4.64 10^6/uL (4.0-5.20); White Blood Cell 5.9 10^3/uL (4.4-10.8)
[2024-03-29 07:27] LABS: Albumin 4.1 g/dL (3.2-4.8); Alkaline Phosphatase 79 U/L (46-116); Anion Gap 9 (5-15); BUN/Creatinine Ratio 8.7 (10.0-20.0); Calcium 9.5 mg/dL (8.7-10.4); Carbon Dioxide 25 mmol/L (20-31); Glucose 103 mg/dL (74-106); Potassium 3.5 mmol/L (3.5-5.1); Sodium 142 mmol/L (136-145)
[2024-03-29 07:28] LABS: Total Protein 7.2 g/dL (5.7-8.2)
[2024-03-29 07:36] LABS: Alanine Aminotransferase 65 U/L (7-40); Aspartate Aminotransferase 48 U/L (13-40); Bilirubin, Total 1.3 mg/dL (0.2-1.0); Blood Urea Nitrogen 8 mg/dL (9-23); Chloride 108 mmol/L (98-107)
--- NOTE | 2024-03-29 07:43 | DVHPN2 ---
Progress Note Date Seen: Mar 29, 2024 Medical Necessity Reason Pt with a Central, PICC or Fol: No Subjective Patient reports: No new complaints Review of Systems: HEENT:Normal, CVS:Normal, RESPIRATORY:Normal, GI:Normal Objective vital signs Vital Sign Date Time Temp Pulse Resp B/P (MAP) Pulse Ox O2 Delivery O2 Flow Rate FiO2 03/29/24 05:00 98.6 67 18 104/59 (74) 95 98.6 03/28/24 20:00 Room Air* 0 21 Total Intake and Output 03/28/24 03/28/24 03/29/24 15:00 23:00 07:00 Intake Total 275 ml 200 ml 500 ml Output Total 200 ml Balance 75 ml 200 ml 500 ml medications Current Medications Medications Dose Ordered Sig/Alphonso Route Start Time Stop Time Status Last Admin Dose Admin Nitroglycerin 0.4 mg Q5MINP PRN SL 03/28/24 02:30 Morphine Sulfate 2 mg Q30M PRN IV 03/28/24 02:30 Piperacillin Sod/ Tazobactam Sod 100 ml @ 25 mls/hr Q8HR IV 03/28/24 09:00 03/29/24 05:12 25 MLS/HR Ondansetron HCl 4 mg Q4HPRN PRN IV 03/28/24 05:30 03/28/24 16:46 4 MG Morphine Sulfate 2 mg Q4HPRN PRN IV 03/28/24 05:30 Morphine Sulfate 1 mg Q2HP PRN IV 03/28/24 05:30 Pantoprazole Sodium 40 mg DAILY IV 03/28/24 10:00 03/28/24 09:54 40 MG Examination: GENERAL:Normal, LUNGS:Normal, CVS:Normal, ABDOMEN:Abnormal laboratory and microbiology Laboratory Tests 03/29/24 05:59 Test 03/29/24 05:59 Range/Units Serum Glucose 103 74-106 mg/dL Problem List/Assessment/Plan Problem List/Assessment/Plan 1) Gall stones with GB thickening on U/S plan; NPO, IV Abx, hydration, supportive care, surgery to plan for OR lap jeremy vs open, daily labs, will follow Plan discussed with: Other (n) JAMES BUTT MD Mar 29, 2024 07:43
[2024-03-29 07:49] VITALS: BP 125/66; PULSE 67; RESP 17; TEMP 99.1; O2SAT 97
[2024-03-29] MEDS: SOD CHL 0.45% 1,000 ML IV SCH (09:19)
[2024-03-29] MEDS: ACETAMINOPHEN 325 MG TAB PO PRN (10:55)
[2024-03-29 12:03] VITALS: BP 127/69; PULSE 59; RESP 18; TEMP 98.5; O2SAT 96
[2024-03-29 16:00] VITALS: BP 136/71; PULSE 65; RESP 18; TEMP 98.1; O2SAT 94
[2024-03-29 20:00] VITALS: PULSE 65; RESP 18; O2SAT 95
[2024-03-29 21:00] VITALS: BP 137/66; PULSE 57; RESP 18; TEMP 98.3; O2SAT 97
[2024-03-30] VITALS (7 sets, daily range): BP systolic 114–143; BP diastolic 54–71; PULSE 62–100; RESP 16–20; TEMP 97.6–98.5; O2SAT 90–98
[2024-03-30 06:26] LABS: Basophils # (auto) 0 10 ^3/uL (0-0.2); Basophils % (auto) 0.4 % (0.0-2.0); Eosinophils # (auto) 0.2 10 ^3/uL (0-0.8); Eosinophils % (auto) 2.9 % (0.0-7.0); Hematocrit 42.4 % (36.0-46.0); Hemoglobin 14.4 g/dL (12.2-16.2); Lymphocytes % (auto) 35.6 % (10.0-50.0); Mean Corpuscular Hemoglobin 29.7 pg (28.0-32.0); Mean Corpuscular Hgb Conc. 33.8 g/dL (32.0-36.0); Mean Corpuscular Volume 87.8 fL (80.0-100.0); Monocytes # (auto) 0.5 10 ^3/uL (0-1.3); Monocytes % (auto) 9.1 % (0.0-12.0); Platelet Count (auto) 329 10^3/uL (140-450); Red Blood Cells 4.83 10^6/uL (4.0-5.20); Red Cell Distribution Width 14.2 % (11.8-14.3); White Blood Cell 5.7 10^3/uL (4.4-10.8)
[2024-03-30 06:46] LABS: Albumin 4.2 g/dL (3.2-4.8); Alkaline Phosphatase 73 U/L (46-116); Anion Gap 9 (5-15); BUN/Creatinine Ratio 8.8 (10.0-20.0); Calcium 9.6 mg/dL (8.7-10.4); Carbon Dioxide 27 mmol/L (20-31); Chloride 106 mmol/L (98-107); Glucose 101 mg/dL (74-106); Potassium 3.5 mmol/L (3.5-5.1); Sodium 142 mmol/L (136-145)
[2024-03-30 06:47] LABS: Total Protein 7.1 g/dL (5.7-8.2)
[2024-03-30 06:49] LABS: Alanine Aminotransferase 61 U/L (7-40); Aspartate Aminotransferase 41 U/L (13-40); Bilirubin, Total 1.2 mg/dL (0.2-1.0); Blood Urea Nitrogen 8 mg/dL (9-23)
--- NOTE | 2024-03-30 07:35 | DVHPN2 ---
Progress Note Date Seen: Mar 30, 2024 Medical Necessity Reason Pt with a Central, PICC or Fol: No Subjective Patient reports: No new complaints Review of Systems: HEENT:Normal, RESPIRATORY:Normal, GI:Normal, :Normal Objective vital signs Vital Sign Date Time Temp Pulse Resp B/P (MAP) Pulse Ox O2 Delivery O2 Flow Rate FiO2 03/30/24 05:00 97.6 64 17 123/69 (87) 96 97.6 03/29/24 20:00 Room Air* 0 21 Total Intake and Output 03/29/24 03/29/24 03/30/24 15:00 23:00 07:00 Intake Total 1600 ml 250 ml Output Total 400 ml Balance 1200 ml 250 ml medications Current Medications Medications Dose Ordered Sig/Alphonso Route Start Time Stop Time Status Last Admin Dose Admin Nitroglycerin 0.4 mg Q5MINP PRN SL 03/28/24 02:30 Morphine Sulfate 2 mg Q30M PRN IV 03/28/24 02:30 Piperacillin Sod/ Tazobactam Sod 100 ml @ 25 mls/hr Q8HR IV 03/28/24 09:00 03/30/24 05:56 25 MLS/HR Ondansetron HCl 4 mg Q4HPRN PRN IV 03/28/24 05:30 03/29/24 09:18 4 MG Morphine Sulfate 2 mg Q4HPRN PRN IV 03/28/24 05:30 Morphine Sulfate 1 mg Q2HP PRN IV 03/28/24 05:30 Pantoprazole Sodium 40 mg DAILY IV 03/28/24 10:00 03/29/24 09:18 40 MG Sodium Chloride 1,000 ml @ 50 mls/hr Q20H IV 03/29/24 07:45 03/29/24 09:19 50 MLS/HR Acetaminophen 650 mg Q4HP PRN PO 03/29/24 10:15 03/29/24 10:55 650 MG Examination: GENERAL:Normal, HEENT:Normal, LUNGS:Normal, CVS:Normal, ABDOMEN:Normal, SKIN:Normal laboratory and microbiology Laboratory Tests 03/30/24 05:47 Test 03/30/24 05:47 Range/Units Serum Glucose 101 74-106 mg/dL Problem List/Assessment/Plan Problem List/Assessment/Plan 1) Gall stones with GB thickening on U/S plan; NPO, IV Abx, hydration, surgery to plan for OR today, will follow post-op, medically stable Plan discussed with: Other (n) JAMES BUTT MD Mar 30, 2024 07:35
[2024-03-30] MEDS: BUPIVACAINE W/ EPINEPH 0.5% INJ 50ML MDV IJ ONE (09:23)
[2024-03-30] MEDS ORDERED: ROCURONIUM 10MG/ML 10ML VIAL IV ONE (09:23)
[2024-03-30] MEDS ORDERED: PROPOFOL 10 MG/ML 20 ML IV ONE (09:23)
[2024-03-30] MEDS ORDERED: LIDOCAINE 1% INJ PF 5ML AMP ONE (09:23)
[2024-03-30] MEDS ORDERED: MIDAZOLAM HCL 2MG/2ML 2ml VIAL (1mg/ml) ONE (09:23)
[2024-03-30] MEDS ORDERED: HYDROmorphone HCL 2 MG/ML VL/or syr IV PRN ×2 (09:30)
[2024-03-30] MEDS ORDERED: ONDANSETRON HCL 4 MG/2 ML VIAL IV ONE (09:30)
[2024-03-30] MEDS ORDERED: HYDROmorphone HCL 2 MG/ML VL/or syr ONE (09:39)
[2024-03-30] MEDS: BUPIVACAINE 0.5% P/F INJ 10 ML VIAL ONE (09:51)
[2024-03-30] MEDS: LIDOCAINE W/ EPINEPHRINE 1% 20ML VIAL ONE (09:51)
[2024-03-30] MEDS ORDERED: KETOROLAC TROMETH 30 MG/ML 1ML VIAL ONE (10:05)
[2024-03-30] MEDS ORDERED: METOCLOPRAMIDE HCL 5MG/ml INJ 2ml VIAL ONE (10:05)
[2024-03-30] MEDS ORDERED: ONDANSETRON HCL 4 MG/2 ML VIAL ONE (10:05)
[2024-03-30] MEDS ORDERED: SUGAMMADEX 200mg/2ml Vial (100MG/ML) IV ONE ×2 (10:06→10:15)
--- NOTE | 2024-03-30 10:25 | DVHOP ---
DATE OF SURGERY: 03/30/2024 PREOPERATIVE DIAGNOSES: Cholelithiasis, cholecystitis. POSTOPERATIVE DIAGNOSES: Cholelithiasis, cholecystitis. SURGEON: Federico Jara MD BARTENDER MANAGER: aCrson De La Paz. ANESTHESIA: General endotracheal. ANESTHESIOLOGIST: Dr. Leung. PROCEDURE: Laparoscopy, laparoscopic cholecystectomy. DESCRIPTION OF PROCEDURE: Under general endotracheal anesthesia, with the patient's skin prepped and draped, a supraumbilical incision was made and Veress needle inserted by the hanging drop technique in order to establish pneumoperitoneum to 15 mmHg pressure by insufflation with carbon dioxide. With the abdomen fully distended, the needle was removed and replaced with a 5 mm trocar port through which a 0-degree viewing laparoscope was inserted and under direct vision, 5 and 10 mm ports inserted through the right anterior axillary line at the level of the umbilicus and through the subxiphoid midline skin respectively. Instrumentation was then introduced and laparoscopy was performed revealing no obvious unexpected pathology. The laparoscopic examination was hampered by the patient's obesity and the gallbladder was grasped with a grasping forceps and placed on tension cephalad. Cystic duct and cystic artery were identified close to the gallbladder, circumferentially dissected and skeletonized, traced into the hepatocystic triangle so as to minimize the potential for inadvertent injury to the common bile duct. The cystic duct and cystic artery were then divided between metallic clips close to the gallbladder, again attempting to avoid inadvertent injury to the common bile duct. Subsequently, the gallbladder was resected from its liver bed by electrocautery and traction was placed into a specimen extraction bag and removed from the peritoneal cavity through the subxiphoid 10 mm port site. Instrumentation was then withdrawn and the patient's abdominal cavity inspected for hemostasis, which was found to be complete. At the termination of procedure, there was no evidence of bleeding from either of the cholecystectomy site or from the port sites. Pneumoperitoneum was evacuated after the irrigation was aspirated and the fascial defect closed using 0 Vicryl. Wounds approximated using Monocryl sutures, Dermabond glue and Steri-Strips. The patient remained stable throughout the procedure, left the operating room following an accurate needle and sponge count. Her daughter Lidia was thoroughly informed at [phone]. MD AMANUEL Wooten/DALILA TID: [id number] RECEIPT: [id number]
[2024-03-30] MEDS ORDERED: ACET-1079 PO (10:47)
[2024-03-30] MEDS: D5W/SOD CHL 0.45%/KCL 20MEQ 1,000 ML IV SCH (12:10)
[2024-03-31 01:00] VITALS: BP 119/65; PULSE 68; RESP 20; TEMP 98; O2SAT 96
[2024-03-31 05:00] VITALS: BP 119/60; PULSE 60; RESP 20; TEMP 98; O2SAT 98
[2024-03-31 07:15] LABS: Alkaline Phosphatase 94 U/L (46-116); Anion Gap 7 (5-15); BUN/Creatinine Ratio 9.5 (10.0-20.0); Calcium 9.1 mg/dL (8.7-10.4); Carbon Dioxide 28 mmol/L (20-31); Chloride 106 mmol/L (98-107); Potassium 3.7 mmol/L (3.5-5.1); Sodium 141 mmol/L (136-145)
[2024-03-31 07:16] LABS: Albumin 3.9 g/dL (3.2-4.8); Bilirubin, Total 1.2 mg/dL (0.2-1.0); Total Protein 6.6 g/dL (5.7-8.2)
[2024-03-31 07:17] LABS: Alanine Aminotransferase 63 U/L (7-40); Aspartate Aminotransferase 47 U/L (13-40); Blood Urea Nitrogen 7 mg/dL (9-23); Glucose 132 mg/dL (74-106)
[2024-03-31 08:00] VITALS: RESP 18
--- NOTE | 2024-03-31 08:38 | DVHDS2 ---
New Physician D'charge PN Admitting Diagnosis Admitting Diagnosis abd pain Discharge Diagnosis choilecystitis s/p lap jeremy Operations or Procedures lap jeremy Reason(s) For Hospitalization Surgery Hospital Course 59 F who comes to ER with abd pain. Her U/S GB showed thickening. She was admitted for cholecystitis and started on IV ABx, fluids and pain control and kept NPO. Surgery saw her and she was taken for a laparoscopic cholecystectomy done on 03/30. She has no complications after the procedure. Surgery saw the patient this AM and cleared her for discharge home. She will follow up with surgery in 2 weeks outpt, [place] [facility] ssdge to arrange for all outpt follow up. Patient cleared for discharge home, Treatment Plan Discharge Condition of Discharge Good Disposition Home with Health Services Discharge Instructions Diet: Cardiac 2g Na,low cholest Activity: No Restrictions, As Tolerated Medications: see med sheet Follow Up Care Follow Up/Referral: pcp surgery Discharge Statement: "Patient was advised to return to the ER or call 911 if any headaches, dizziness, shortness of breath, chest pain, abdominal pain, bleeding, fevers, or worsening of medical condition. Patient was counseled about treatment plan, medications, possible side effects, patientverbalized understanding. All questions were answered to the best of my ability. This discharge took greater then 30 minutes in planning, reviewing documentation, counseling the patient, and discussing with other team members." JAMES BUTT MD Mar 31, 2024 08:38
[2024-03-31 09:00] VITALS: BP 120/68; PULSE 75; RESP 16; RESP 18; TEMP 98; TEMP 98.6; O2SAT 95
--- NOTE | 2024-03-31 09:42 | DVHPN2 ---
Progress Note Date Seen: Mar 31, 2024 Medical Necessity Reason Pt with a Central, PICC or Fol: No Objective vital signs Vital Sign Date Time Temp Pulse Resp B/P (MAP) Pulse Ox O2 Delivery O2 Flow Rate FiO2 03/31/24 09:00 98.6 75 16 120/68 (85) 95 98.6 03/31/24 08:00 Room Air* 0 21 Total Intake and Output 03/30/24 03/30/24 03/31/24 15:00 23:00 07:00 Intake Total 475 ml 900 ml 200 ml Balance 475 ml 900 ml 200 ml medications Current Medications Medications Dose Ordered Sig/Alphonso Route Start Time Stop Time Status Last Admin Dose Admin Nitroglycerin 0.4 mg Q5MINP PRN SL 03/28/24 02:30 Morphine Sulfate 2 mg Q30M PRN IV 03/28/24 02:30 Piperacillin Sod/ Tazobactam Sod 100 ml @ 25 mls/hr Q8HR IV 03/28/24 09:00 03/31/24 06:08 25 MLS/HR Ondansetron HCl 4 mg Q4HPRN PRN IV 03/28/24 05:30 03/29/24 09:18 4 MG Morphine Sulfate 2 mg Q4HPRN PRN IV 03/28/24 05:30 Morphine Sulfate 1 mg Q2HP PRN IV 03/28/24 05:30 Pantoprazole Sodium 40 mg DAILY IV 03/28/24 10:00 03/29/24 09:18 40 MG Sodium Chloride 1,000 ml @ 50 mls/hr Q20H IV 03/29/24 07:45 Hold 03/29/24 09:19 50 MLS/HR Acetaminophen 650 mg Q4HP PRN PO 03/29/24 10:15 03/31/24 08:41 650 MG Potassium Chloride/Dextrose/ Sod Cl 1,000 ml @ 120 mls/hr Q8H20M IV 03/30/24 10:15 03/31/24 02:55 120 MLS/HR laboratory and microbiology Laboratory Tests 03/31/24 05:53 03/30/24 05:47 Test 03/31/24 05:53 Range/Units Serum Glucose 132 H 74-106 mg/dL Problem List/Assessment/Plan Problem List/Assessment/Plan 03/31/24feels well, tolerating po without nausea, passing flatus, abdomen appropriately tender, wounds OK, given instructions, she is cleared to be discharged, to return to see me in two weeks Plan discussed with: Patient NASH HERNANDEZ MD Mar 31, 2024 09:42
== END 2024-03-31 11:58 | disposition home health service (06) | DRG 419 ==
LOC: EDBD 00:05 → ER 00:05 → EDSEX 00:05 → OVERFLOW 02:20 → EAST 15:03
PROVIDERS: ATTEND Internal Medicine
PROC: 0FT44ZZ Resection of Gallbladder, Percutaneous Endoscopic Approach (ICD-10-PCS; principal; 2024-03-30 09:29)
DX: K80.00 Calculus of gallbladder with acute cholecystitis without obstruction (principal); E78.5 Hyperlipidemia, unspecified; I10 Essential (primary) hypertension; Z20.822 Contact with and (suspected) exposure to COVID-19; Z88.0 Allergy status to penicillin; Z87.11 Personal history of peptic ulcer disease; Z83.3 Family history of diabetes mellitus; Z82.49 Family history of ischemic heart disease and other diseases of the circulatory system
CPT/HCPCS: 36415; 71045; 74177; 76705; 80053; 80307; 81001; 82977; 83690; 84484; 85025; 85610; 85730; 86850; 86900; 86901; 87040; 87426; 87804; 93005; G0378; J1885; J2250; J2405; J2470; J2543; J2704; J3490